=== PATIENT | female | born 1975 | race Caucasian/White ===

== ENCOUNTER 2024-04-30 16:55 | Emergency (ER) | payer SELFPAY ==
[2024-04-30] MEDS ORDERED: Ketorolac Tromethamine 30 MG (1 mL) VIAL ONE (17:38)
[2024-04-30] MEDS ORDERED: Cyclobenzaprine 10 MG TAB ONE (18:28)
== END 2024-04-30 18:43 | disposition home or self-care (01) ==
LOC: NAV ERS 16:55
DX: S60.212A Contusion of left wrist, initial encounter (principal); S70.01XA Contusion of right hip, initial encounter; F17.210 Nicotine dependence, cigarettes, uncomplicated; V89.2XXA Person injured in unspecified motor-vehicle accident, traffic, initial encounter
CPT/HCPCS: 96372; J1885